=== PATIENT | male | born 1965 ===

== ENCOUNTER 2023-01-29 06:23 | Day surgery (SDC) | payer BC ==
[2023-01-29] MEDS ORDERED: CEFAZOLIN SODIUM 1 GM/VIAL ONE (07:03)
[2023-01-29] MEDS ORDERED: NA CHLORIDE 0.9% 1,000 ML ONE (07:03)
[2023-01-29 07:05] LABS: Absolute Lymphocytes (CBC) 2.4 K/uL (0.7-4.9); Hematocrit 44.9 % (39.6-49.0); Lymphocytes % 25.9 % (15.3-44.8); MCV 88.1 fL (80-100); MPV 8.1 fL (7.6-11.3); Platelets 227 thou/uL (152-406)
[2023-01-29 07:18] LABS: Potassium 3.9 mEq/L (3.5-5.1)
--- NOTE | 2023-01-29 08:17 | RAD REPORT ---
EXAM DESCRIPTION: RAD - Chest Pa And Lat (2 Views) - 01/29/2023 7:07 am CLINICAL HISTORY: PRE-OP. Hypertension COMPARISON: No comparisons TECHNIQUE: PA and lateral views of the chest were obtained. FINDINGS: The lungs are clear. Heart size is normal and central vasculature is within normal limits. No pleural effusion or pneumothorax seen. No acute bony finding noted. IMPRESSION: No acute cardiopulmonary process.
[2023-01-29] MEDS ORDERED: dexAMETHasone 10 MG/ML VIAL ONE (08:21)
[2023-01-29] MEDS ORDERED: KETOROLAC 30 MG/ML INJ ONE (08:21)
[2023-01-29] MEDS ORDERED: ROCURONIUM 50 MG/5 ML VIAL IV ONE (08:21)
[2023-01-29] MEDS ORDERED: MIDAZOLAM HCL 2 MG/2 ML INJ ONE (08:21)
[2023-01-29] MEDS ORDERED: propofoL 200 MG/20 ML VIAL IV ONE (08:21)
[2023-01-29] MEDS ORDERED: LIDOCAINE 2% MPF 5 ML VIAL ONE (08:21)
[2023-01-29] MEDS ORDERED: KETAMINE HCL IN 0.9 % NACL 50 MG/5 ML SYRINGE IV ONE (08:21)
[2023-01-29] MEDS ORDERED: FENTANYL CITR 100 MCG/2 ML ONE (08:21)
[2023-01-29] MEDS ORDERED: ONDANSETRON 4 MG/2 ML VIAL ONE (08:22)
[2023-01-29] MEDS ORDERED: GLYCOPYRROLATE 0.2 MG/ML SYR ONE (09:31)
--- NOTE | 2023-01-29 09:44 | P.BOP ---
Preoperative diagnosis: incarcerated tender umbilical hernia Postoperative diagnosis: same, intraabdominal adhesions Primary procedure: 1. Laparoscopic repair of incarcerated tender umbilical hernia Secondary procedure: 2. Laparoscopic lysis of adhesions [employer] Supervisor: JEREMY ALEXANDER ([employer]UTTER TENDER) Estimated blood loss: <10cc Specimen: hernia sac and content Findings: incarcerated omentum Anesthesia: General Complications: None Drain(s): Other Implants: ventralex medium Transferred to: Recovery Room Condition: Good
[2023-01-29] MEDS: HYDROMORPHONE HCL 1 MG/ML INJ ONE ×2 (10:17→10:23)
[2023-01-29] MEDS ORDERED: HYDROCODONE/APAP 10/325 TAB ONE (11:07)
[2023-01-29 11:26] VITALS: BP 114/67; TEMP 98.1; O2SAT 95
[2023-01-29] MEDS ORDERED: HYDROCODONE/APAP 10/325 TAB PO ONE (11:30)
--- NOTE | 2023-01-29 12:12 | EKG ---
Test Date: 2023-01-29 Test Time: 07:25:09 Dolly Driver: JOYCE MEASUREMENT RESULTS: Intervals: Rate: 63 AK: 150 QRSD: 86 QT: 402 QTc: 411 [place]: P: 18 AK: 150 QRS: 39 T: 32 INTERPRETIVE STATEMENTS: Normal sinus rhythm Normal ECG No previous ECG available for comparison Electronically Signed On 01-29-23 12:11:47 CDT by Pancho Chaudhari
--- NOTE | 2023-01-29 14:27 | DS ---
Date of Discharge: 01/29/2023 Diagnoses: Incarcerated tender umbilical hernia, intra-abdominal adhesions. Procedures: Laparoscopic repair of incarcerated tender umbilical hernia with mesh and laparoscopic l ysis of adhesions. Disposition: Home. Activity: As tolerated. No heavy lifting. Plan: Follow up in my office in 1 week. Call for appointment at [phone]. Keep area intact. KACY/EDUARDO Voice ID: [id number] Report ID: [id number]
--- NOTE | 2023-01-29 15:00 | OP ---
Date of Procedure: 01/29/2023 Surgeon: Arsenio Trujillo MD Soils Analyst: Miranda Paredes. Preoperative Diagnosis: Incarcerated tender umbilical hernia. Postoperative Diagnoses: Incarcerated tender umbilical hernia, extensive intra-abdominal adhesions. Procedures: 1.Laparoscopic repair of incarcerated tender umbilical hernia with mesh. 2.Laparoscopic lysis of adhesions. Estimated Blood Loss: Less than 10 cc. Specimen: Hernia sac and content. Finding: Incarcerated omentum. The patient also has intra-abdominal adhesions not only on the periu mbilical region, but in the left lower quadrant too that needs to be addressed before we put a mesh i n that region. Anesthesia: General plus local. Complications: None. Drains: None. Implant: A Ventralex medium mesh. Indication: This is the case of a 57-year-old patient, who comes to us with a tender incarcerated um bilical hernia with cyanotic skin. The benefits, alternatives, and risks of a laparoscopic versus op en repair of tender umbilical hernia with mesh fully explained, which include, but not limited to inf ection, bleeding, damage to adjacent structures, anesthesia complication, recurrence, AR, and even de ath. He also understands this may not relieve any symptoms. He might need more than one surgical in tervention. He understood, signed a consent. He also understands the importance of losing some weig ht. He says he has been working on that already. Pros and cons of mesh placement were discussed wit h the patient and all the questions were answered to his satisfaction. He did agree with the use of mesh. Procedure In Detail: The patient was brought to the operating room, placed in supine position. Anes thesia was done without complication. Abdominal area was prepped and draped in the usual sterile fas hion. Local anesthesia was applied followed by sharp incision of the skin in the infraumbilical maren on. The incision was carried down until we found the incarcerated omentum. We have to open the jimbo ia sac and carefully remove the incarcerated omentum by suture ligated that with the help of chromic between Ev clamps. Once we inspected the omentum, we saw the rest of it was not bleeding. We pro ceeded then to clean the fascial edges and removed the hernia sac. We still have some intra-abdomina l adhesions inside that we can see from here, so we are going to have laparoscopically clear that are a in order for us to be able to put the mesh in that region since the fascial edges are not enough to hold this own and he needed mesh. At that moment, we proceeded then to place a Vicryl #1 inside the fascia, Fransisca trocar was carefully introduced, and pneumoperitoneum was obtained. At that moment, I put a 5 mm trocar on the right and left side of the abdomen under direct visualization. The right side was a little bit difficult to place it since the patient has adhesions and then on the left side , the patient also has adhesions in periumbilical, etiology of that is unknown. In order for us to c annelinue, we have to use the LigaSure to be able to clean the adhesions from that region. At that mom ent, I proceeded to carefully do lysis of adhesions making sure there were no enterotomies or bleedin g. It took about half of the time just to do those adhesions itself. Once we have that, we made cecy e we have no enterotomies and no bleeding, I proceeded then to clean the fascial edges again. So, I selected a medium Ventralex mesh to go intraperitoneally, the strap came through the incision. The V entralex mesh was secured in place with the help of SorbaFix. The strap was removed today and then w e proceeded to close at least approximated the fascial edges with #1 Vicryl in a [id number] fash ion multiple times. After that, I went inside again intraperitoneally and continued securing the mes h to the anterior abdominal wall with SorbaFix making sure it was nice and flat. Local anesthesia wa s applied over the area too. At that moment, we have air seal and we also checked the area of lysis of adhesions with no bleeding. At that moment, I proceeded to close the subcutaneous tissue after de flating the pneumoperitoneum and removing the trocars. We closed the subcutaneous tissue with 3-0 ch romic and the skin with yu. Sponge count, instrument counts correct. The patient tolerated the procedure well. The patient was sent to recovery in stable condition. KACY/FRANCHESCAL Voice ID: [id number] Report ID: [id number]
== END 2023-01-29 11:15 | disposition home or self-care (01) ==
LOC: OR 06:23
PROVIDERS: ATTEND Surgery
PROC: 0DNW4ZZ Release Peritoneum, Percutaneous Endoscopic Approach (ICD-10-PCS; 2023-01-29)
PROC: 0WUF4JZ Supplement Abdominal Wall with Synthetic Substitute, Percutaneous Endoscopic Approach (ICD-10-PCS; principal; 2023-01-29 08:30)
DX: K42.0 Umbilical hernia with obstruction, without gangrene (principal); K66.0 Peritoneal adhesions (postprocedural) (postinfection); G47.33 Obstructive sleep apnea (adult) (pediatric)
CPT/HCPCS: 93005; 85025; 80048; 36415; 82947; 88302; 71046; 49594; 49329; J2704; J2001; J2250; J3010; J1100; J1170; J2405; J7030; J0690